=== PATIENT | male | born 1955 | race Caucasian/White ===

== ENCOUNTER 2017-11-30 23:52 | Inpatient (IN) | payer BC ==
[~2017-11-30] VITALS: Ht 193 cm; Wt 103.2 kg
[2017-12-01 00:20] LABS: BASOPHILS # (AUTO) 0.04 x10^3/uL (0-0.1); BASOPHILS % (AUTO) 0 % (0-1); EOSINOPHILS # (AUTO) 0.37 x10^3/uL (0-0.4); EOSINOPHILS % (AUTO) 4 % (1-7); LYMPHOCYTES # (AUTO) 1.44 x10^3/uL (1-3.4); LYMPHOCYTES % (AUTO) 15 % (22-44); MD NO; MEAN CORPUSCULAR HEMOGLOBIN 30.5 pg (27.5-34.5); MEAN CORPUSCULAR HGB CONC 34.1 g/dL (33.2-36.2); MEAN CORPUSCULAR VOLUME 89.5 fL (81-97); MEAN PLATELET VOLUME 8.4 fL (7.4-10.4); MONOCYTES # (AUTO) 0.95 x10^3/uL (0.2-0.8); MONOCYTES % (AUTO) 10 % (2-9); NEUTROPHILS # (AUTO) 7.09 x10^3/uL (1.8-6.8); NEUTROPHILS % (AUTO) 72 % (42-75); PLATELET COUNT 218 x10^3/uL (130-400); RED BLOOD COUNT 4.88 x10^6/uL (4.38-5.82); RED CELL DISTRIBUTION WIDTH 13.2 % (9.4-14.8)
[2017-12-01 00:23] LABS: INTERNATIONAL NORMALIZED RATIO 0.96 (0.93-1.1)
[2017-12-01 00:26] LABS: ALBUMIN 3.2 g/dL (3.4-5.0); ANION GAP 6 mmol/L (5-15); CALCIUM 8.5 mg/dL (8.5-10.1); CHLORIDE 112 mmol/L (98-107); CREATININE 1.28 mg/dL (0.7-1.3)
[2017-12-01 00:29] LABS: TROPONIN I < 0.015 ng/mL (0.000-0.045)
[2017-12-01] MEDS ORDERED: SODIUM CHLORIDE FLUSH 10ML SYR IVF ONE (00:30)
[2017-12-01] MEDS ORDERED: NITROGLYCERIN OINT 2%, 1GM TP ONE ×2 (01:29→01:30)
[2017-12-01] MEDS ORDERED: SODIUM CHLORIDE 0.9% 1,000 ML IV SCH (03:37)
[2017-12-01] MEDS ORDERED: hydrALAzine 20 MG/ML, 1ML IVPush PRN (04:00)
[2017-12-01] MEDS ORDERED: morphine SULFATE 10 MG/ML, 1ML IVPush PRN (04:00)
[2017-12-01] MEDS: FAMOTIDINE 20 MG/2 ML IVPush SCH ×2 (04:00→07:47)
[2017-12-01] MEDS ORDERED: DOCUSATE 100 MG CAPSULE PO PRN (04:00)
[2017-12-01] MEDS ORDERED: NITROGLYCERIN 0.4 MG BOTTLE (25 TABS) SL PRN (04:00)
[2017-12-01] MEDS ORDERED: ONDANSETRON 2MG/ML, 2ML IVPush PRN (04:00)
[2017-12-01] MEDS ORDERED: BISACODYL 10 MG SUPP PR PRN (04:00)
[2017-12-01] MEDS: HEPARIN 5,000 UNITS/ML, 1ML SQ SCH ×2 (04:00→11:22)
[2017-12-01] MEDS ORDERED: ENALAPRILAT 1.25 MG/ML, 2ML IVPush PRN (04:00)
[2017-12-01] MEDS ORDERED: OXYcodone IR 5MG TABLET PO PRN (04:00)
[2017-12-01] MEDS ORDERED: ACETAMINOPHEN 325 MG TABLET PO PRN (04:00)
[2017-12-01] MEDS ORDERED: POLYETHYLENE GLYCOL 17 GM PACKET PO PRN (04:00)
[2017-12-01 04:16] VITALS: BP 122/73
[2017-12-01 05:17] LABS: INTERNATIONAL NORMALIZED RATIO 0.97 (0.93-1.1); PROTHROMBIN TIME 10.1 Seconds (9.6-11.5)
[2017-12-01 05:26] LABS: TROPONIN I < 0.015 ng/mL (0.000-0.045)
[2017-12-01 05:36] LABS: FREE T4 (FREE THYROXINE) 1.07 ng/dL (0.76-1.46); THYROID STIMULATING HORMONE 2.35 mIU/L (0.358-3.740)
[2017-12-01 05:48] LABS: HEMOGLOBIN A1C 6.8 % (4.2-6.3)
[2017-12-01] MEDS ORDERED: ASPIRIN 81 MG TABLET EC PO SCH (06:00)
[2017-12-01] MEDS ORDERED: REGADENOSON 0.4 MG/5 ML SYRINGE ONE (08:04)
[2017-12-01 08:58] VITALS: BP 157/71
[2017-12-01 11:49] LABS: MICROSCOPIC NOT IND
[2017-12-01 11:53] LABS: CULTURE INDICATED? NO
[2017-12-01 12:12] LABS: TROPONIN I < 0.015 ng/mL (0.000-0.045)
[2017-12-01 15:24] VITALS: BP 135/71
[2017-12-01] MEDS ORDERED: ASPI-621 PO (15:41)
== END 2017-12-01 16:47 | disposition home or self-care (01) | DRG 303 ==
LOC: ED 12-01 00:57 → EDIP 12-01 01:22 → 5SO 12-01 02:03
PROVIDERS: ADMIT Internal Medicine; ATTEND Family Medicine
DX: I25.10 Atherosclerotic heart disease of native coronary artery without angina pectoris (principal); E44.0 Moderate protein-calorie malnutrition; W18.39XA Other fall on same level, initial encounter; E11.9 Type 2 diabetes mellitus without complications; Z68.27 Body mass index [BMI] 27.0-27.9, adult; G89.29 Other chronic pain; K21.9 Gastro-esophageal reflux disease without esophagitis; Y93.89 Activity, other specified; Y92.89 Other specified places as the place of occurrence of the external cause; Y99.8 Other external cause status; Z79.82 Long term (current) use of aspirin; M54.6 Pain in thoracic spine
CPT/HCPCS: 36415; 72040; 72072; 72100; 78452; 80048; 81003; 82040; 83036; 83690; 83735; 83880; 84439; 84443; 84484; 85025; 85610; 85730; 93005; 93017; J2785; A9502; C9898; J7030